=== PATIENT | male | born 1965 | race African-American/Black ===

== ENCOUNTER 2024-03-29 16:37 | Inpatient (IN) | payer OTHER ==
[2024-03-29 17:55] VITALS: BMI 22.9
[2024-03-29] MEDS ORDERED: guaiFENesin 600 MG TABLET.ER (FP) PO PRN (19:22)
[2024-03-29] MEDS ORDERED: P-EPHED 60MG/TRIPROLIDI 2.5MG TABLET PO PRN (19:22)
[2024-03-29] MEDS ORDERED: POLYETHYLENE GLYCOL (HEALTHYLAX) 3350 17 GM PACKET PO PRN (19:22)
[2024-03-29] MEDS ORDERED: IBUPROFEN 400 MG TABLET (FP) PO PRN (19:22)
[2024-03-29] MEDS ORDERED: NICOTINE POLACRILEX 2 MG GUM BUC PRN (19:22)
[2024-03-29] MEDS ORDERED: NICOTINE POLACRILEX 2 MG LOZENGE BC PRN (19:22)
[2024-03-29] MEDS ORDERED: LOPERAMIDE HCL 2 MG CAPSULE PO PRN (19:22)
[2024-03-29] MEDS ORDERED: DICYCLOMINE HCL 10 MG CAPSULE PO PRN (19:22)
[2024-03-29] MEDS ORDERED: NALOXONE HCL 0.4 MG/ML VIAL IM PRN (19:22)
[2024-03-29] MEDS ORDERED: IBUPROFEN 600 MG TABLET (FP) PO PRN (19:22)
[2024-03-29] MEDS ORDERED: MAG HYDROX/AL HYDROX/SIMETH 30 ML UNIT-DOSE CUP PO PRN (19:22)
[2024-03-29] MEDS ORDERED: MAGNESIUM HYDROX 2400MG/30ML ORAL SUSPENSION 30 ML CUP PO PRN (19:22)
[2024-03-29] MEDS ORDERED: ACETAMINOPHEN 325 MG TABLET (FP) PO PRN (19:22)
[2024-03-29] MEDS ORDERED: BENZONATATE 200 MG CAPSULE PO PRN (19:22)
[2024-03-29] MEDS ORDERED: BISMUTH SUBSALICYLATE 524 MG/30 ML PO PRN (19:22)
[2024-03-29] MEDS ORDERED: BENZOCAINE/MENTHOL (CHLORASEPTIC ) LOZENGE MM PRN (19:22)
[2024-03-29] MEDS ORDERED: ONDANSETRON *ODT* 4 MG TABLET SL PRN (19:22)
[2024-03-29] MEDS ORDERED: NALOXONE (NARCAN) HCL 4 MG/0.1 ML SPRAY NS PRN (19:22)
[2024-03-29] MEDS ORDERED: METHOCARBAMOL 500 MG TABLET PO PRN (19:22)
[2024-03-29] MEDS: MELATONIN 5 MG TABLETS PO SCH (23:24)
[2024-03-29] MEDS: THIAMINE 100 MG TABLET PO SCH (23:26)
[2024-03-30 06:37] VITALS: PULSE 54; RESP 16
[2024-03-30 09:09] VITALS: BP 123/70; TEMP 97.8
[2024-03-30] MEDS: PRENATAL VITAMINS W/ FOLIC ACID TABLET (FP) PO SCH (10:06)
[2024-03-30 11:43] LABS: HEMATOCRIT 49.2 % (35.4-49); HEMOGLOBIN 16.4 GM/dL (11.7-16.9); MCH 30.4 pg (25.7-33.7); MCHC 33.4 g/dl (32.0-35.9); MEAN CELL VOLUME 91.2 fl (80-96); MEAN PLT VOLUME 8.4 fl (7.5-11.1); PLATELET COUNT 245 10^3/uL (134-434); RDW 13.7 % (11.9-15.9); WHITE BLOOD COUNT 6.7 K/mm3 (4.0-10.0)
[2024-03-30 11:50] LABS: POTASSIUM 4.3 mmol/L (3.5-5.1)
[2024-03-30 11:58] LABS: CALCIUM 9.5 mg/dL (8.5-10.1)
[2024-03-30 11:59] LABS: ALBUMIN 3.6 g/dl (3.4-5.0); BLOOD UREA NITROGEN 10.9 mg/dL (7-18)
[2024-03-30 12:01] LABS: CREATININE 0.9 mg/dL (0.55-1.3)
[2024-03-30 12:02] LABS: BILIRUBIN,TOTAL 0.8 mg/dL (0.2-1)
[2024-03-30 12:03] LABS: TOT PROT 7.4 g/dl (6.4-8.2)
== END 2024-03-30 10:40 | disposition left against medical advice (07) | DRG 770 ==
LOC: YASAS 16:37 → Y6N 20:04
PROVIDERS: ADMIT Allergy & Immunology; ATTEND Surgery
PROC: HZ2ZZZZ Detoxification Services for Substance Abuse Treatment (ICD-10-PCS; principal; 2024-03-29)
DX: F10.230 Alcohol dependence with withdrawal, uncomplicated (principal); F10.220 Alcohol dependence with intoxication, uncomplicated; F11.20 Opioid dependence, uncomplicated; F17.210 Nicotine dependence, cigarettes, uncomplicated; I10 Essential (primary) hypertension; E11.9 Type 2 diabetes mellitus without complications; R00.1 Bradycardia, unspecified; Z56.0 Unemployment, unspecified
CPT/HCPCS: 36415; 80053; 80305; 80307; 82962; 85027; 86593; 86780; 93005; 93010